=== PATIENT | male | born 1945 | race Two or more races ===

== ENCOUNTER 2017-12-21 08:46 | Emergency (ER) | payer OTHER ==
--- NOTE | 2017-12-21 08:52 | EDPHY ---
H & P Time Seen by Provider: 12/21/17 08:52 HPI/ROS: CHIEF COMPLAINT: Chest pain HISTORY OF PRESENT ILLNESS: The patient presents the ED after he experienced 2 episodes of exertional chest pain at work this morning. The patient reported these episodes occurred at 8 in 830 this morning. The 1st episode occurred when he was jumping on the back of a work truck the 2nd episode occurred while he was walking up a hill. The patient did developed some discomfort in his left arm with a 2nd episode. His symptoms have essentially resolved. He has no prior history of exertional chest pain or shortness of breath. The patient does have a history of hypertension diabetes. He believes he did have a treadmill stress test approximately 7 years ago for evaluation of bradycardia which was unremarkable by his report. The patient denies any asymmetric calf pain or swelling. He denies pleuritic chest pain. He denies additional acute complaints. REVIEW OF SYSTEMS: A comprehensive 10 point review of systems is otherwise negative aside from elements mentioned in the history of present illness. Source: Patient Exam Limitations: No limitations - Medical/Surgical History PMH: Past medical history: Hypertension, diabetes - Family History Significant Family History: No pertinent family hx - Social History Smoking Status: Never smoked - Physical Exam Exam: General Appearance: Alert, no distress Eyes: Pupils equal and round no pallor or injection ENT, Mouth: Mucous membranes moist Respiratory: There are no retractions, lungs are clear to auscultation Cardiovascular: Regular rate and rhythm Gastrointestinal: Abdomen is soft and nontender, no masses, bowel sounds normal Neurological: 5/5 strength all 4 extremities Skin: Warm and dry, no rashes Musculoskeletal: Neck is supple nontender, no clinical evidence of DVT Extremities: symmetrical, full range of motion Constitutional: Initial Vital Signs Temperature (C) 36.7 C 12/21/17 08:51 Heart Rate 76 12/21/17 08:51 Respiratory Rate 16 12/21/17 08:51 Blood Pressure 164/51 H 12/21/17 08:51 O2 Sat (%) 95 12/21/17 08:51 O2 Delivery Mode Room Air Allergies/Adverse Reactions: No Known Allergies Allergy (Unverified 12/21/17 08:50) Home Medications: Medication Instructions Recorded Benazepril HCl 12/21/17 Metformin HCl 12/21/17 Simvastatin 12/21/17 glipiZIDE 12/21/17 Medical Decision Making - Diagnostics EKG Interpretation: EKG: Complete interpretation has been separately recorded in the [employer] archive. Summary impression: Sinus rhythm, rate 64 Imaging Results: Imaging Impressions Chest X-Ray 12/21/17 09:13 Impression: Clear lungs. No acute process. ED Course/Re-evaluation: The patient presents to the ED with 2 episodes of brief exertional chest pain or today. The patient's EKG and troponins x2 are normal. The patient did undergo a treadmill stress test with a Lombardo treadmill score of 6 and there is no evidence of ischemia noted. The patient was seen in consultation by Dr. Mcclelland. He does recommend that he needs to be seen in follow-up with his content manager in [place] within the next 10 days for further evaluation and consideration of a nuclear stress test because of his risk factors and symptoms. The patient has been informed that we have not fully exclude the possibility of coronary artery disease in that further workup is indicated. He does understand he needs to return to the ED immediately for any recurrent chest pain. I will have the patient begin taking a 325 mg aspirin on a daily basis. Differential Diagnosis: Differential diagnosis considered includes acute coronary syndrome, esophageal spasm, musculoskeletal chest wall pain, myocardial infarction - Data Points Laboratory Results: Laboratory Results 12/21/17 09:00 12/21/17 09:00 12/21/17 12/21/17 12/21/17 09:59 09:06 09:00 WBC RBC Hgb Hct MCV MCH MCHC RDW Plt Count MPV Neut % (Auto) Lymph % (Auto) [place] % (Auto) Eos % (Auto) Baso % (Auto) Nucleat RBC Rel Count Absolute Neuts (auto) Absolute Lymphs (auto) Absolute Monos (auto) Absolute Eos (auto) Absolute Basos (auto) Absolute Nucleated RBC Immature Gran % Immature Gran # Sodium 138 mEq/L mEq/L (135-145) Potassium 3.9 mEq/L mEq/L (3.3-5.0) Chloride 105 mEq/L mEq/L (97-110) Carbon Dioxide 23 mEq/l mEq/l (22-31) Anion Gap 10 mEq/L mEq/L (8-16) BUN 17 mg/dL mg/dL (7-23) Creatinine 0.6 mg/dL L mg/dL (0.7-1.3) Estimated GFR > 60 Glucose 263 mg/dL H mg/dL (70-100) Calcium 9.4 mg/dL mg/dL (8.5-10.4) POC Troponin I 0.00 ng/mL ng/mL 0.00 ng/mL ng/mL (0.00-0.08) (0.00-0.08) 12/21/17 09:00 WBC 5.53 10^3/uL 10^3/uL (3.80-9.50) RBC 4.97 10^6/uL 10^6/uL (4.40-6.38) Hgb 14.5 g/dL g/dL (13.7-17.5) Hct 43.2 % % (40.0-51.0) MCV 86.9 fL fL (81.5-99.8) MCH 29.2 pg pg (27.9-34.1) MCHC 33.6 g/dL g/dL (32.4-36.7) RDW 12.9 % % (11.5-15.2) Plt Count 94 10^3/uL L 10^3/uL (150-400) MPV 11.4 fL fL (8.7-11.7) Neut % (Auto) 53.6 % % (39.3-74.2) Lymph % (Auto) 33.8 % % (15.0-45.0) [place] % (Auto) 9.9 % % (4.5-13.0) Eos % (Auto) 2.0 % % (0.6-7.6) Baso % (Auto) 0.5 % % (0.3-1.7) Nucleat RBC Rel Count 0.0 % % (0.0-0.2) Absolute Neuts (auto) 2.96 10^3/uL 10^3/uL (1.70-6.50) Absolute Lymphs (auto) 1.87 10^3/uL 10^3/uL (1.00-3.00) Absolute Monos (auto) 0.55 10^3/uL 10^3/uL (0.30-0.80) Absolute Eos (auto) 0.11 10^3/uL 10^3/uL (0.03-0.40) Absolute Basos (auto) 0.03 10^3/uL 10^3/uL (0.02-0.10) Absolute Nucleated RBC 0.00 10^3/uL 10^3/uL (0-0.01) Immature Gran % 0.2 % % (0.0-1.1) Immature Gran # 0.01 10^3/uL 10^3/uL (0.00-0.10) Sodium Potassium Chloride Carbon Dioxide Anion Gap BUN Creatinine Estimated GFR Glucose Calcium POC Troponin I Point of Care Test Results: Chemistry 12/21/17 12/21/17 09:59 09:06 POC Troponin I 0.00 ng/mL ng/mL 0.00 ng/mL ng/mL (0.00-0.08) (0.00-0.08) Departure - Departure Disposition: Home, Routine, Self-Care Clinical Impression: Chest pain Condition: Good Instructions: Chest Pain (ED) Additional Instructions: 1. Please follow-up with your content manager Dr. Solis in [place] within the next week for consideration of a nuclear stress test for further evaluation of your symptoms. 2. We are unable to fully exclude the possibility of coronary artery disease and further workup is indicated. You should return to the ED immediately for any recurrent symptoms of chest pain or shortness of breath. 3. I do recommend beginning a 325 mg aspirin on a daily basis. 4. You can also follow up with the content manager here [facility]. You have been given Dr. Armando Mcclelland contact information. Referrals: ROXANA JETT [Other] - As per Instructions Armando Mcclelland MD [Medical Doctor] - As per Instructions
--- NOTE | 2017-12-21 09:00 | CPEKG ---
Heart Rate: 64 RR Interval: 938 P-R Interval: 188 QRSD Interval: 98 QT Interval: 388 QTC Interval: 401 P [place]: 16 QRS [place]: -50 T Wave [place]: 20 EKG Severity - ABNORMAL ECG - EKG Impression: SINUS RHYTHM EKG Impression: INFERIOR INFARCT, AGE INDETERMINATE Electronically Signed By: Kaden Lebron 21-Dec-2017 09:10:33
[2017-12-21 09:31] LABS: PLATELET COUNT 94 10^3/uL (150-400)
[2017-12-21 11:01] VITALS: BP 113/76
--- NOTE | 2017-12-21 11:55 | CPR ---
[f rep st] NONINVASIVE CARDIAC PROCEDURE REPORT INDICATION: The patient has been having anterior chest discomfort. It can come on with exertion but also can come on on its own. He has multiple risk factors for coronary disease. PROCEDURE: The patient underwent a standard Agustin protocol stress test. He went [address] andard Agustin protocol, and then, we held that stage for another 30 seconds. He did not want to go fa ster or higher at that point. He reached 85% of maximum predicted heart rate. He had no chest pain or chest tightness, jaw pain, arm pain. The test was stopped for fatigue and shortness of breath. Baseline EKG has a tremor present and has poor R-wave progression and nonspecific ST-T changes. ST s egments are difficult to interpret because of the tremor. The EKG staff tried many ways to get rid o f the tremor, and that was not possible. The patient did not have ST-segment deviation of any significance with exercise. The patient had no chest pain and had no arrhythmias with exercise or in recovery. The patient did reach 85% of maximum predicted heart rate. His Lombardo treadmill score would be 6 indicating a low probability of cardiovascular event in the next 3 years. DISCUSSION: 1. This exercise tolerance test was negative for EKG or clinical evidence of ischemia at a good work load. 2. The patient has only moderate exercise tolerance. 3. The patient has multiple major risk factors for coronary disease and has been getting a chest trevor n syndrome that is worrisome, so I recommended to him that he see his nut threader in [place], Dr. Ambrose cline, within the next 7 days, and the patient said he would do that. 4. I do not want him to think that we are telling him he is fine and does not need any followup on t his. I specifically told him that there may be consideration for doing a nuclear imaging study given the quality of his symptoms and his risk factors. His own nut threader is who he would like to see and will be in a good position to make these decisions with him. 5. I have instructed the patient that should he start to develop symptoms anytime in the next 24-36 hours he needs to come into an emergency room and get evaluated because sometimes after we stress pat ients their cardiovascular status deteriorates, and I also do not want him to ignore any symptoms he might develop thinking that everything is fine because he has done a stress test. All his questions have been answered. COMPLICATIONS: None. CONDITION: At end of study excellent. /[id number]/[id number]
== END 2017-12-21 11:31 | disposition home or self-care (01) ==
DX: R07.9 Chest pain, unspecified (principal); I10 Essential (primary) hypertension; E11.9 Type 2 diabetes mellitus without complications; Z79.84 Long term (current) use of oral hypoglycemic drugs
CPT/HCPCS: 84484-PO